=== PATIENT | female | born 1975 | race African-American/Black ===

== ENCOUNTER 2020-01-04 22:42 | Emergency (ER) | payer SELFPAY | END 2020-01-04 23:30 | disposition left against medical advice (07) | DRG 951 | LOC: ED 22:42 → LWOBS 23:35 | DX: Z91.19 Patient's noncompliance with other medical treatment and regimen (principal) ==

== ENCOUNTER 2020-11-19 21:35 | Emergency (ER) | payer SELFPAY | END 2020-11-19 22:00 | disposition left against medical advice (07) | DRG 951 | LOC: ED 21:35 → LWOBS 22:00 | DX: Z53.21 Procedure and treatment not carried out due to patient leaving prior to being seen by health care provider (principal) ==

== ENCOUNTER 2022-07-25 19:58 | Emergency (ER) | payer SELFPAY | END 2022-07-25 20:53 | disposition left against medical advice (07) | DRG 951 | LOC: ED 19:58 → LWOBS 20:53 | DX: Z53.21 Procedure and treatment not carried out due to patient leaving prior to being seen by health care provider (principal) ==